=== PATIENT | male | born 1975 ===

== ENCOUNTER 2020-04-19 06:55 | Outpatient (CLI) | payer OTHER | END 2020-04-19 15:51 | disposition home or self-care (01) | LOC: LAB 06:55 | DX: E03.8 Other specified hypothyroidism (principal); E78.49 Other hyperlipidemia; Z13.1 Encounter for screening for diabetes mellitus; Z11.3 Encounter for screening for infections with a predominantly sexual mode of transmission; Z12.5 Encounter for screening for malignant neoplasm of prostate; Z01.818 Encounter for other preprocedural examination ==

== ENCOUNTER → 2021-04-29 06:10 | Outpatient (CLI) | payer OTHER | END | disposition home or self-care (01) | LOC: LAB 06:10 | PROVIDERS: ATTEND Internal Medicine Nephrology | DX: E03.8 Other specified hypothyroidism (principal); N18.1 Chronic kidney disease, stage 1; E78.49 Other hyperlipidemia; Z12.5 Encounter for screening for malignant neoplasm of prostate; Z11.3 Encounter for screening for infections with a predominantly sexual mode of transmission; Z12.11 Encounter for screening for malignant neoplasm of colon; Z12.89 Encounter for screening for malignant neoplasm of other sites; Z13.1 Encounter for screening for diabetes mellitus ==